=== PATIENT | female | born 1975 | race Two or more races ===

== ENCOUNTER → 2024-07-28 | Outpatient (CLI) | payer MEDICAID, SELFPAY ==
[2024-07-27 09:33] LABS: Basophils # (Auto) 0.1 Thou/mm3 (0.0-0.2); Basophils % (Auto) 1 % (0-2.5); Eosinophils # (Auto) 0.3 Thou/mm3 (0.0-0.5); Eosinophils % (Auto) 4 % (0-10); Hematocrit 36.8 % (36.0-46.0); Hemoglobin 11.3 g/dL (12.0-16.0); Immature Granulocytes % (Auto) 0 % (0-0); Immature Granulocytes Auto 0.03 Thou/mm3 (0.00-0.00); Lymphocytes # (Auto) 2.7 Thou/mm3 (1.0-4.8); Lymphocytes % (Auto) 30 % (10-50); Mean Corpuscular HGB Conc 30.7 g/dl (31.0-37.0); Mean Corpuscular Hemoglobin 22.4 pg (25.0-35.0); Mean Corpuscular Volume 73 fL (80-100); Monocytes # (Auto) 0.7 Thou/mm3 (0.0-0.8); Monocytes % (Auto) 8 % (0-12); Neutrophils % (Auto) 57 % (37-80); Nucleated Red Blood Cell % 0 /100 WBC (0); Platelet Count 397 Thou/mm3 (140-440); RDW Standard Deviation 41.6 fL (36.4-46.3); Red Blood Count 5.05 Miln/mm3 (4.00-5.20); White Blood Count 8.8 Thou/mm3 (3.6-11.0)
[2024-07-27 10:00] LABS: HCG,Qualitative Serum Negative
[2024-07-27 10:37] LABS: Partial Thromboplastin Time 29.8 Seconds (22.0-36.0); Prothrombin Time 10.7 Seconds (9.0-12.2)
--- NOTE | 2024-07-28 09:30 | XR_ITS ---
Examination: Breast ultrasound limited, right complete Date and time of exam: July 28 2024 0953 hours 10:00 nodule 17 x 13 mm 10:00 nodule 6 x 5 mm on breast sonogram May 05, 2024 Technique: Real time villegas scale ultrasonographic imaging of the breast , retroarelar and axillary region. Findings: 9:00 nodule with breast biopsy marker noted fairly circumscribed Patient declines biopsy Impression: BI-RADS Category 3: Probably benign findings Recommend 1 additional 6 month right breast sonogram follow-up
== END | disposition home or self-care (01) ==
LOC: SDIM 08:58 → SIRX 09:44
PROVIDERS: Radiology Diagnostic Radiology; PCP Physician Assistant; Referring Provider Physician Assistant; Visit Provider Physician Assistant
DX: N63.15 Unspecified lump in the right breast, overlapping quadrants (principal); Z53.8 Procedure and treatment not carried out for other reasons
CPT/HCPCS: 36415; 76642; 84703; 85025; 85610; 85730

== ENCOUNTER 2025-03-31 08:30 | Outpatient (RCR) | payer MEDICAID, SELFPAY ==
[2025-03-29 16:44] LABS: HCG Qualitative,Urine Negative
--- NOTE | 2025-03-30 08:45 | XR_ITS ---
EXAMINATION: Nuclear medicine thyroid scan and uptake Date and time: March 30, 2025, 0420 hours INDICATIONS: Diagnosis nontoxic multinodular goiter, swollen neck, difficulty swallowing, weight gain, exhaustion, hypertension, ultrasound examination of the thyroid 2022 significant thyromegaly TECHNIQUE AND FINDINGS: 4 administration 290 uCi I-[id number] 6-hour 24-hour uptake values as well as anterior oblique thyroid scans 6-hour uptake 9% normal range 6 to 24% 24-hour uptake 18.4% normal range 10 to 36% Suspicious for hyperfunctioning mid pole right thyroid nodule IMPRESSION: Normal thyroid uptake values Suspicion for hyperfunctioning mid pole right thyroid nodule, recommend repeat thyroid sonography
== END 2025-04-05 23:59 | disposition home or self-care (01) ==
LOC: SNUC 08:30
PROVIDERS: PCP Physician Assistant; Referring Provider Physician Assistant; Visit Provider Physician Assistant
DX: E04.1 Nontoxic single thyroid nodule (principal); Z32.00 Encounter for pregnancy test, result unknown
CPT/HCPCS: 78013; 81025; A9516

== ENCOUNTER → 2025-05-09 | Outpatient (CLI) | payer MEDICAID, SELFPAY ==
[2025-05-09 10:57] LABS: HCG Qualitative,Urine Negative
--- NOTE | 2025-05-09 13:43 | XR_ITS ---
Examination: CT brain head without contrast. 2-D sagittal coronal reconstructions Date and time of exam: May 09 2025, 1352 hours INDICATIONS: Headaches beginning 4 months ago CTDI: vol (mGy): 54.5 DLP: (mGycm): 1100 Technique: Multiple CT axial sections of the brain have been obtained, 5 mm slice thickness. Contrast has not been administered. 2-D sagittal, coronal reconstructions have been obtained Low dose protocols were performed. One or more of the following dose reduction techniques were used; automated exposure control, adjustment of the mA and/or KV according to patient size, use of iterative reconstruction technique. Findings: No significant ventricular enlargement. Intra-axial or extra-axial hemorrhage density is not seen. No mass effect or midline shift Basal cisterns are not remarkable. Fourth ventricle is midline. Cranial vault intact. Impression: Negative for acute hemorrhage, mass effect or midline shift Advise clinical correlation and follow-up accordingly
== END | disposition home or self-care (01) ==
PROVIDERS: PCP Physician Assistant; Referring Provider Physician Assistant; Visit Provider Physician Assistant
DX: R51.9 Headache, unspecified (principal); Z32.00 Encounter for pregnancy test, result unknown
CPT/HCPCS: 70450; 81025